=== PATIENT | male | born 1940 | race Caucasian/White ===

== ENCOUNTER 2017-02-15 18:16 | Emergency (ER) | payer OTHER, BC ==
[2017-02-15 18:31] VITALS: BP 150/67; PULSE 90; RESP 18; TEMP 97.7; O2SAT 93
--- NOTE | 2017-02-15 19:21 | EDPHY ---
H & P Time Seen by Provider: 02/15/17 18:25 HPI/ROS: This patient complains of left knee pain. This been present for 2 weeks. He did have a minor fall when he tripped over a curb in a parking lot and he initially forgot about this but he reports that he did not have any significant immediate pain from the fall. He has had pain since that time the medial aspect of his knee that is worse with weight-bearing. He does not climb stairs so he has not noticed any other exacerbating or alleviating factors and has not been very active other than walking since the event. He has moderate relief from Aleve at appropriate doses. He drove himself by private vehicle for further evaluation. 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 He also has history of type 2 diabetes. ROS: Constitutional: No fevers chills or other constitutional symptoms HEENT no trauma or other complaints Musculoskeletal: No other joint pain. No swelling to the affected knee. Integumentary: No skin rash or erythema to the affected knee. No lacerations abrasions from his fall 2 weeks ago. Neuro: No acute complaints 7 point ROS is otherwise negative Past Medical/Surgical History: Type 2 diabetes Right knee total replacement Hypothyroidism Hypertension Obesity Smoking Status: Never smoked Physical Exam: Physical Exam Vital signs are normal. General: Pleasant moderately obese 76-year-old male No acute distress HEENT: Atraumatic. Eyes: Pupils equal and react to light. Extraocular motions are intact. Lungs: No respiratory distress. Cardiac: Brisk capillary refill is intact throughout. Pulses are 2+ and symmetric in the affected extremity. Skin: No rash or pallor. Musculoskeletal: Left knee exam is notable for medial tenderness at the joint line. However there is no increase in pain with varus or valgus stress. No laxity with Meka's maneuver. No significant effusion. No erythema or warmth to touch. No patellar tenderness or patellar apprehension With patient prone and knee bent 90 degrees he has increased pain with medial rotation of the foot. No crepitance is appreciated. No pain with axial loading while in knees bent. Neuro: Alert and oriented x3 with no sensorimotor deficits. Initial differential diagnosis: Meniscal injury, fracture, doubt gout, contusion, strain, mild MCL sprain Constitutional: Initial Vital Signs Temperature (C) 36.5 C 02/15/17 18:28 Heart Rate 90 02/15/17 18:28 Respiratory Rate 18 02/15/17 18:28 Blood Pressure 150/67 H 02/15/17 18:28 O2 Sat (%) 93 02/15/17 18:28 O2 Delivery Mode Room Air Allergies/Adverse Reactions: clarithromycin Allergy (Verified 02/15/17 18:31) hydrocodone Allergy (Verified 02/15/17 18:31) Home Medications: Medication Instructions Recorded ADVAIR HFA 230-21 MCG INHALER 02/15/17 ASPIRIN 02/15/17 Atorvastatin Calcium 02/15/17 BENADRYL 02/15/17 Benzonatate 02/15/17 Flonase Nasal [place] 02/15/17 GLIPIZIDE 02/15/17 Januvia 100 MG (*) 02/15/17 LAMOTRIGINE 02/15/17 Levitra 02/15/17 Levothyroxine 02/15/17 Lidocaine 5% [Lidoderm 5% Patch 1 ea TD DAILY #20 patch 02/15/17 (*)] Liothyronine Sodium 02/15/17 Losartan Potassium 02/15/17 Multivitamin 02/15/17 Rabeprazole Sodium 02/15/17 ZYRTEC 02/15/17 MDM/Departure - MDM Diagnostics: Three-view knee x-ray: Minimal DJD with no acute fractures by my interpretation Imaging Results: Imaging Impressions Knee X-Ray 02/15/17 18:35 Impression: Negative for definite acute abnormality, with possible residua of remote trauma related to the insertion of the patellar tendon on the anterior tibia. If the patient is symptomatic in this region, MRI could be considered for further evaluation. Imaging: I viewed and interpreted images myself ED Course/Re-evaluation: Patient declined any analgesics while here. He is placed in Jeet wrap after a neoprene brace found to be too small for him. Discussion/medical decision-making: Patient with minor trauma, no evidence of ligamentous laxity or fracture. Given exam findings in nature of pain and suspect a medial meniscal source of injury and pain. Also, I do not appreciate evidence of any significant monoarthritis or septic joint-no fever, erythema, warmth to touch or significant effusion. Counseled patient regarding this. I Advised him to continue the Aleve at appropriate doses and add Tylenol if needed and lidocaine patch if needed for pain control. He will follow up with the on-call orthopedic physician-Dr. Coleman for further evaluation of any ongoing symptoms. - Depart Disposition: Home, Routine, Self-Care Clinical Impression: Knee meniscus pain Qualifiers: Laterality: left Qualified Code(s): M25.562 - Pain in left knee Condition: Good Instructions: Knee Pain (ED) Additional Instructions: Diagnosis: Left meniscal Knee pain Plan: Continue ice Aleve Do not exceed 1500 mg of leave per day Lidocaine patch in addition if needed and Tylenol in addition if needed jeet-wrap when you're up and about Stretch hamstring and quadriceps muscles of leg prior to walking and moving about in the morning. Call the orthopedic physician listed below - Dr. Coleman to arrange follow-up appointment for further evaluation Return for any significant worsening despite treatment plan Prescriptions: Lidocaine 5% [Lidoderm 5% Patch (*)] 1 ea TD DAILY #20 patch Referrals: Jesus Nathan [Primary Care Provider] - As per Instructions Emil Coleman MD [Medical Doctor] - As per Instructions
== END 2017-02-15 19:33 | disposition home or self-care (01) ==
LOC: SUPCPDRO 18:16 → CED 18:16
DX: S89.92XA Unspecified injury of left lower leg, initial encounter (principal); E11.9 Type 2 diabetes mellitus without complications; I10 Essential (primary) hypertension; Z79.82 Long term (current) use of aspirin; W01.0XXA Fall on same level from slipping, tripping and stumbling without subsequent striking against object, initial encounter; Y92.481 Parking lot as the place of occurrence of the external cause
CPT/HCPCS: 73564-PO

== ENCOUNTER → 2017-09-21 | Outpatient (CLI) | payer OTHER, BC | LOC: CIMAGING 14:38 | PROVIDERS: ATTEND Orthopaedic Surgery | DX: T84.84XA Pain due to internal orthopedic prosthetic devices, implants and grafts, initial encounter (principal); M62.89 Other specified disorders of muscle; M17.12 Unilateral primary osteoarthritis, left knee | CPT/HCPCS: 73700-PO ==

== ENCOUNTER → 2018-04-11 | Outpatient (CLI) | payer OTHER, BC | LOC: BHCLAF 10:45 | PROVIDERS: ATTEND Internal Medicine Cardiovascular Disease | DX: R06.09 Other forms of dyspnea (principal) | CPT/HCPCS: 93306-PO ==

== ENCOUNTER → 2018-04-27 | Outpatient (CLI) | payer OTHER, BC | LOC: BHFA 13:30 | PROVIDERS: ATTEND Internal Medicine Cardiovascular Disease | DX: R06.02 Shortness of breath (principal); I50.9 Heart failure, unspecified | CPT/HCPCS: 78452; 93017; A9500; J2785 ==

== ENCOUNTER → 2018-05-05 | Outpatient (CLI) | payer OTHER, BC | LOC: BHFA 11:00 | PROVIDERS: ATTEND Internal Medicine Cardiovascular Disease | DX: R06.02 Shortness of breath (principal) ==

== ENCOUNTER → 2018-05-18 | Outpatient (CLI) | payer OTHER, BC ==
[~2018-05-18] MED LIST: IOPAMIDOL (ISOVUE 370) 100 ML BTL IV ONE
== END ==
LOC: CIMAGING 11:25
PROVIDERS: ATTEND Internal Medicine Cardiovascular Disease
DX: I70.0 Atherosclerosis of aorta (principal)
CPT/HCPCS: 74175; Q9967

== ENCOUNTER → 2018-09-12 | Outpatient (CLI) | payer OTHER, BC | LOC: FIMAGING 15:00 ==